=== PATIENT | female | born 1975 | race Caucasian/White ===

== ENCOUNTER → 2017-06-07 | Outpatient (REF) | payer BC | LOC: M SFHCWAGY 08:33 | PROVIDERS: ATTEND Nurse Practitioner Women's Health | DX: Z12.4 Encounter for screening for malignant neoplasm of cervix (principal) ==

== ENCOUNTER → 2018-06-08 | Outpatient (CLI) | payer BC | LOC: M WHC 08:09 | DX: Z12.31 Encounter for screening mammogram for malignant neoplasm of breast (principal) | CPT/HCPCS: 77067 ==

== ENCOUNTER → 2019-06-09 | Outpatient (CLI) | payer BC ==
--- NOTE | 2019-06-09 09:27 | REPMRS ---
Patient History The patient states she had a clinical breast exam in 05/2019. No known family history of cancer. Taking hormonal contraceptives for 24 years. Digital Woman Screen Mammo: June 09, 2019 - Exam #: [id number] Bilateral CC and MLO view(s) were taken. Technologist: Teresita Pérez, Technologist Prior study comparison: June 08, 2018, bilateral digital woman screen mammo performed at [facility]. 2015, bilateral digital mammo screening bilat, performed at [facility]. June 14, 2015, bilateral digital woman screen mammo, performed at [facility]. FINDINGS: There are scattered fibroglandular densities. There is a stable nodular opacity inferomedially in the right breast unchanged. There has been no change in the appearance of the mammogram from the prior studies. There is a mild amount of scattered fibroglandular density which is fairly symmetric. There is no interval development of dominant mass, architectural distortion, or grouped microcalcification suggestive of malignancy. 3-D tomosynthesis shows no additional findings. Assessment: BI-RADS/ACR category 2 mammogram. Benign Findings. Recommendation Routine screening mammogram of both breasts in 1 year (for women over age 40). This patient's Lifetime Breast Cancer Risk is estimated at 8.9 %. This mammogram was interpreted with the aid of an FDA-approved computer-aided dectection system. Electronically Signed By: Joseph Catalan MD 06/09/19 0985
== END ==
LOC: M WHC 08:14
PROVIDERS: ATTEND Nurse Practitioner Women's Health
DX: Z12.31 Encounter for screening mammogram for malignant neoplasm of breast (principal); Z79.3 Long term (current) use of hormonal contraceptives

== ENCOUNTER → 2019-06-26 | Outpatient (CLI) | payer BC ==
[2019-06-26 10:22] LABS: BASO # 0.1 10^3/uL (0.0-0.2); BASO % 0.5 % (0.0-1.0); EOS # 0.1 10^3/uL (0.0-0.50); EOS % 1.3 % (0.0-3.0); HEMATOCRIT 43.3 % (36.0-47.0); HEMOGLOBIN 13.9 g/dl (12.0-15.5); LYMPH # 4.2 10^3/uL (1.5-4.5); LYMPH % 44.4 % (24.0-44.0); MEAN CORPUSCULAR HEMOGLOBIN 29.1 pg (27.0-33.0); MEAN CORPUSCULAR HGB CONC 32.1 g/dl (32.0-36.5); MEAN CORPUSCULAR VOLUME 90.6 fl (80.0-96.0); MONO # 0.7 10^3/uL (0.0-0.8); MONO % 7.5 % (0.0-5.0); NEUTROPHILS # 4.4 10^3/uL (1.8-7.7); NEUTROPHILS % 46.1 % (36.0-66.0); PLATELET COUNT, AUTOMATED 335 10^3/uL (150-450); RED BLOOD COUNT 4.78 10^6/uL (4.00-5.40); WHITE BLOOD COUNT 9.5 10^3/uL (4.0-10.0)
[2019-06-26 10:36] LABS: HEMOGLOBIN A1c 5.9 %
[2019-06-26 10:43] LABS: ALBUMIN 3.3 GM/DL (3.2-5.2); ALT/SGPT 20 U/L (12-78); BILIRUBIN,TOTAL 0.2 MG/DL (0.2-1.0); BLOOD UREA NITROGEN 11 MG/DL (7-18); CALCIUM LEVEL 8.8 MG/DL (8.5-10.1); CARBON DIOXIDE LEVEL 28 MEQ/L (21-32); CHLORIDE LEVEL 106 MEQ/L (98-107); CHOLESTEROL LEVEL 171 MG/DL (<200); CHOLESTEROL RISK RATIO 3.109 (<5); CREATININE FOR GFR 0.67 MG/DL (0.55-1.30); GLOMERULAR FILTRATION RATE > 60.0 (>58); GLUCOSE, FASTING 93 MG/DL (70-100); HDL CHOLESTEROL 55 MG/DL (>40); LDL CHOLESTEROL 75 MG/DL (<100); NON-HDL-C 116 MG/DL; POTASSIUM SERUM 4.4 MEQ/L (3.5-5.1); SODIUM LEVEL 140 MEQ/L (136-145); TOTAL PROTEIN 6.8 GM/DL (6.4-8.2); TRIGLYCERIDES LEVEL 203 MG/DL (<150)
[2019-06-26 11:30] LABS: TOTAL 25(OH) VITAMIN D 24.9 NG/ML (30.0-100.0)
== END ==
LOC: M SMT 08:04
PROVIDERS: ATTEND Internal Medicine
DX: G43.009 Migraine without aura, not intractable, without status migrainosus (principal); E66.9 Obesity, unspecified

== ENCOUNTER → 2020-05-31 | Outpatient (REF) | payer BC ==
[2020-05-31 12:56] LABS: ALBUMIN 3.4 GM/DL (3.2-5.2); ALT/SGPT 32 U/L (12-78); BILIRUBIN,TOTAL 0.4 MG/DL (0.2-1.0); BLOOD UREA NITROGEN 12 MG/DL (7-18); CALCIUM LEVEL 8.7 MG/DL (8.5-10.1); CARBON DIOXIDE LEVEL 28 MEQ/L (21-32); CHLORIDE LEVEL 106 MEQ/L (98-107); CHOLESTEROL LEVEL 205 MG/DL (<200); CHOLESTEROL RISK RATIO 3.306 (<5); CREATININE FOR GFR 0.71 MG/DL (0.55-1.30); FOLATE > 24.0 NG/ML; GLOMERULAR FILTRATION RATE > 60.0 (>58); GLUCOSE, FASTING 89 MG/DL (70-100); HDL CHOLESTEROL 62 MG/DL (>40); LDL CHOLESTEROL 108 MG/DL (<100); NON-HDL-C 143 MG/DL; POTASSIUM SERUM 4.5 MEQ/L (3.5-5.1); SODIUM LEVEL 138 MEQ/L (136-145); TOTAL 25(OH) VITAMIN D 34.5 NG/ML (30.0-100.0); TOTAL PROTEIN 7.3 GM/DL (6.4-8.2); TRIGLYCERIDES LEVEL 175 MG/DL (<150); VITAMIN B12 LEVEL 1574 PG/ML
[2020-05-31 13:10] LABS: HEMOGLOBIN A1c 5.9 %
[2020-05-31 13:19] LABS: MALB URINE SIEMENS 10.2 MG/L; MAU/CREAT RATIO 5.7 MCG/MG (0.0-30.0)
== END ==
LOC: M PLALAB 08:01
PROVIDERS: ATTEND Nurse Practitioner Family
DX: G43.109 Migraine with aura, not intractable, without status migrainosus (principal); R73.03 Prediabetes; E66.01 Morbid (severe) obesity due to excess calories; E55.9 Vitamin D deficiency, unspecified; E53.8 Deficiency of other specified B group vitamins

== ENCOUNTER → 2021-06-17 | Outpatient (CLI) | payer BC ==
--- NOTE | 2021-06-17 11:46 | REP ---
INDICATION: ILEANA SCR MAMMO. COMPARISON: Multiple TECHNIQUE: Digital screening mammography was carried out bilaterally in the CC and MLO projections using both 2D and 3D modalities and compared to the prior exams. By history, the patient has no complaints of a palpable breast abnormality or other significant breast complaints. FINDINGS: The breasts are unchanged in size and shape. Once again, dense heterogenous somewhat nodular fibroglandular elements are seen bilaterally. In the right breast upper outer quadrant there is a potential tiny monica density. No other suspicious features are seen in either breast. The Volpara volumetric breast density pattern is b. IMPRESSION: BIRADS/ACR category 0 mammogram. Potential monica density right breast upper outer quadrant for which diagnostic digital magnified spot compression views recommended in the CC and MLO projections along with diagnostic ultrasonography if necessary. This patient's Tyrer-Cuzick lifetime breast cancer risk assessment score is 8.7%. This mammogram was interpreted with the aid of an FDA-approved computer-aided detection system. The patient states she had a clinical breast exam in May 2021. The patient letter being requested is M0. RECOMMENDATION: As above <Electronically signed by Spencer Infante > 06/17/21 1148
== END ==
LOC: M WHC 09:52
PROVIDERS: ATTEND Nurse Practitioner Women's Health
DX: Z12.31 Encounter for screening mammogram for malignant neoplasm of breast (principal)

== ENCOUNTER → 2021-07-03 | Outpatient (CLI) | payer BC ==
[2021-07-03 12:03] LABS: BLOOD UREA NITROGEN 14 MG/DL (7-18); CARBON DIOXIDE LEVEL 28 MEQ/L (21-32); CHLORIDE LEVEL 106 MEQ/L (98-107); CREATININE FOR GFR 0.63 MG/DL (0.55-1.30); GLOMERULAR FILTRATION RATE > 60.0 (>58); GLUCOSE, FASTING 90 MG/DL (70-100); POTASSIUM SERUM 4.4 MEQ/L (3.5-5.1); SODIUM LEVEL 139 MEQ/L (136-145)
[2021-07-03 12:04] LABS: ALBUMIN 3.3 GM/DL (3.2-5.2); ALT/SGPT 29 U/L (12-78); BILIRUBIN,TOTAL 0.3 MG/DL (0.2-1.0); CALCIUM LEVEL 8.6 MG/DL (8.5-10.1); FREE T4 0.93 NG/DL (0.76-1.46); TOTAL PROTEIN 7.1 GM/DL (6.4-8.2)
[2021-07-03 12:10] LABS: TOTAL 25(OH) VITAMIN D 46.8 NG/ML (30.0-100.0)
[2021-07-03 12:20] LABS: VITAMIN B12 LEVEL 1463 PG/ML
[2021-07-03 12:59] LABS: HEMOGLOBIN A1c 5.6 %
[2021-07-03 14:16] LABS: FOLATE > 24.0 NG/ML
== END ==
LOC: M PLALAB 08:53
PROVIDERS: ATTEND Nurse Practitioner Family
DX: E55.9 Vitamin D deficiency, unspecified (principal); R73.03 Prediabetes; E66.01 Morbid (severe) obesity due to excess calories; E53.8 Deficiency of other specified B group vitamins

== ENCOUNTER → 2021-07-10 | Outpatient (CLI) | payer BC ==
--- NOTE | 2021-07-10 09:02 | REP ---
INDICATION: ADDITIONAL VIEWS RT BREAST. COMPARISON: Multiple the latest prior screening examination 06/17/2021 showed a potential monica density in the upper outer quadrant of the right breast for which diagnostic digital magnified spot compression views were obtained in the CC and MLO projections. TECHNIQUE: Diagnostic digital magnified spot-compression views right breast upper outer quadrant FINDINGS: The area seen on the prior screening examination in the upper outer quadrant of the right breast has compressed out to normal breast parenchyma. No abnormalities are noted. IMPRESSION: BIRADS/ACR category 2 benign findings. There is no evidence of malignant alteration. This mammogram was interpreted with the aid of an FDA-approved computer-aided detection system. The patient letter being requested is M1. RECOMMENDATION: Repeat screening mammography recommended 1 year (for women over 40). <Electronically signed by Spencer Infante > 07/10/21 0852
== END ==
LOC: M WHC 08:00
PROVIDERS: ATTEND Nurse Practitioner Women's Health
DX: R92.2 Inconclusive mammogram (principal)

== ENCOUNTER → 2021-08-27 | Outpatient (CLI) | payer BC ==
--- NOTE | 2021-08-27 09:49 | REP ---
INDICATION: RT KNEE PAIN. COMPARISON: None. TECHNIQUE: [place] and weight-bearing AP and lateral views of the right knee. FINDINGS: AP view demonstrates mild cortical irregularity to the femoral condyles. The tibiofemoral joint space appears relatively normal. [place] view demonstrates increased sclerosis along the posterior patellar margin with minimal lateral patellofemoral joint space narrowing suggested. Correlation is recommended. No evidence for acute or healed injury. No effusion. IMPRESSION: Questionable mild degenerative changes primarily involving the patellofemoral joint space. <Electronically signed by Adam Hansen > 08/27/21 0961
== END ==
LOC: M SOG 08:56
PROVIDERS: ATTEND Orthopaedic Surgery Adult Reconstructive Orthopaedic Surgery
DX: M25.561 Pain in right knee (principal)

== ENCOUNTER → 2021-12-09 | Outpatient (CLI) | payer BC ==
[2021-12-09 15:59] LABS: ALBUMIN 3.6 GM/DL (3.2-5.2); ALT/SGPT 39 U/L (12-78); BILIRUBIN,TOTAL 0.3 MG/DL (0.2-1.0); BLOOD UREA NITROGEN 17 MG/DL (7-18); CALCIUM LEVEL 9.1 MG/DL (8.5-10.1); CARBON DIOXIDE LEVEL 27 MEQ/L (21-32); CHLORIDE LEVEL 105 MEQ/L (98-107); CHOLESTEROL LEVEL 210 MG/DL (<200); CHOLESTEROL RISK RATIO 3.559 (<5); CREATININE FOR GFR 0.75 MG/DL (0.55-1.30); GLOMERULAR FILTRATION RATE > 60.0 (>58); GLUCOSE, FASTING 88 MG/DL (70-100); HDL CHOLESTEROL 59 MG/DL (>40); LDL CHOLESTEROL 103 MG/DL (<100); NON-HDL-C 151 MG/DL; POTASSIUM SERUM 4.6 MEQ/L (3.5-5.1); SODIUM LEVEL 137 MEQ/L (136-145); TOTAL 25(OH) VITAMIN D 51.7 NG/ML (30.0-100.0); TOTAL PROTEIN 7.4 GM/DL (6.4-8.2); TRIGLYCERIDES LEVEL 242 MG/DL (<150); VITAMIN B12 LEVEL > 2000 PG/ML
== END ==
LOC: M PLALAB 10:17
PROVIDERS: ATTEND Nurse Practitioner Adult Health
DX: E55.9 Vitamin D deficiency, unspecified (principal); E53.8 Deficiency of other specified B group vitamins; E66.01 Morbid (severe) obesity due to excess calories; Z83.49 Family history of other endocrine, nutritional and metabolic diseases; Z83.3 Family history of diabetes mellitus

== ENCOUNTER → 2022-01-01 | Outpatient (CLI) | payer BC | LOC: M RAD 14:47 | PROVIDERS: ATTEND Nurse Practitioner Adult Health | DX: R91.1 Solitary pulmonary nodule (principal) ==

== ENCOUNTER → 2022-05-03 | Outpatient (CLI) | payer BC ==
[~2022-05-03] MED LIST: AMIT10TA7 PO; BUPR300T92 PO; ENSK1TAB3 PO; PROP60TA18 PO; SUMA100T2 PO
== END ==
LOC: M LABSMTC 09:36
PROVIDERS: ATTEND Anesthesiology
DX: Z01.812 Encounter for preprocedural laboratory examination (principal)

== ENCOUNTER 2022-05-06 10:57 | Day surgery (SDC) | payer BC ==
[~2022-05-06] VITALS: Ht 172.7 cm; Wt 128.8 kg
[~2022-05-06 10:57] MED LIST changes: +LIDOCAINE 2% 100MG/5ML SDV (FOR ANES.) As Ordered ONE; +NS 1,000 ML IV ONE; +propofoL 200 MG/20 ML VIAL As Ordered ONE
[2022-05-06 12:50] VITALS: BP 139/93
== END 2022-05-06 13:05 | disposition home or self-care (01) ==
LOC: M OPP 10:57
PROVIDERS: ATTEND Internal Medicine Gastroenterology
DX: Z12.11 Encounter for screening for malignant neoplasm of colon (principal); Z80.0 Family history of malignant neoplasm of digestive organs; K64.0 First degree hemorrhoids; F41.9 Anxiety disorder, unspecified; F32.A Depression, unspecified; G43.909 Migraine, unspecified, not intractable, without status migrainosus; G47.30 Sleep apnea, unspecified; Z79.899 Other long term (current) drug therapy; Z96.652 Presence of left artificial knee joint

== ENCOUNTER → 2022-06-24 | Outpatient (CLI) | payer BC ==
[~2022-06-24] MED LIST changes: -LIDOCAINE 2% 100MG/5ML SDV (FOR ANES.) As Ordered ONE; -NS 1,000 ML IV ONE; -propofoL 200 MG/20 ML VIAL As Ordered ONE
== END ==
LOC: M PLALAB 14:53
PROVIDERS: ATTEND Advanced Practice Midwife
DX: Z53.9 Procedure and treatment not carried out, unspecified reason (principal)

== ENCOUNTER → 2022-06-24 | Outpatient (CLI) | payer BC | LOC: M WHC 13:17 | PROVIDERS: ATTEND Advanced Practice Midwife | DX: Z12.31 Encounter for screening mammogram for malignant neoplasm of breast (principal) ==

== ENCOUNTER → 2022-12-16 | Outpatient (CLI) | payer BC ==
[2022-12-16 14:25] LABS: HEMOGLOBIN A1c 5.2 % (4.0-6.0)
[2022-12-16 14:47] LABS: ALBUMIN 3.4 G/DL (3.2-5.2); ALKALINE PHOSPHATASE 110 U/L (46-116); ALT/SGPT 22 U/L (7.0-40); AST/SGOT 19 U/L (<34); BILIRUBIN,TOTAL 0.4 MG/DL (0.3-1.2); BLOOD UREA NITROGEN 13 MG/DL (9-23); CALCIUM LEVEL 8.8 MG/DL (8.5-10.1); CARBON DIOXIDE LEVEL 28 MMOL/L (20-31); CHLORIDE LEVEL 107 MMOL/L (98-107); CHOLESTEROL LEVEL 201 MG/DL (<200); CHOLESTEROL RISK RATIO 2.92 (<5); CREATININE FOR GFR 0.72 MG/DL (0.55-1.30); GLOMERULAR FILTRATION RATE > 60.0 (>58); GLUCOSE, FASTING 76 MG/DL (60-100); HDL CHOLESTEROL 68.7 MG/DL (>40); LDL CHOLESTEROL 100.9 MG/DL (<100); NON-HDL-C 132 MG/DL; POTASSIUM SERUM 4.6 MMOL/L (3.5-5.1); SODIUM LEVEL 139 MMOL/L (136-145); TOTAL PROTEIN 6.7 G/DL (5.7-8.2); TRIGLYCERIDES LEVEL 157 MG/DL (<150)
[2022-12-16 14:48] LABS: THYROID STIMULATING HORMONE 2.458 uIU/ML (0.55-4.78); TOTAL 25(OH) VITAMIN D 56.8 NG/ML (20.0-100.0)
== END ==
LOC: M PLALAB 09:25
PROVIDERS: ATTEND Nurse Practitioner Adult Health
DX: R73.03 Prediabetes (principal); E55.9 Vitamin D deficiency, unspecified; Z83.49 Family history of other endocrine, nutritional and metabolic diseases

== ENCOUNTER → 2023-11-10 | Outpatient (CLI) | payer BC | LOC: M WHC 10:25 | PROVIDERS: ATTEND Advanced Practice Midwife | DX: Z12.31 Encounter for screening mammogram for malignant neoplasm of breast (principal) ==

== ENCOUNTER → 2023-11-10 | Outpatient (REF) | payer BC | LOC: M SFHCWAGY 17:27 | PROVIDERS: ATTEND Nurse Practitioner Family | DX: Z12.4 Encounter for screening for malignant neoplasm of cervix (principal) ==

== ENCOUNTER → 2023-12-22 | Outpatient (CLI) | payer BC ==
[2023-12-22 11:58] LABS: HEMOGLOBIN A1c 5.4 % (4.0-6.0)
[2023-12-22 12:01] LABS: ALBUMIN 3.3 G/DL (3.2-5.2); ALKALINE PHOSPHATASE 114 U/L (46-116); ALT/SGPT 27 U/L (7.0-40); AST/SGOT 20 U/L (<34); BILIRUBIN,TOTAL 0.3 MG/DL (0.3-1.2); BLOOD UREA NITROGEN 13 MG/DL (9-23); CALCIUM LEVEL 9.1 MG/DL (8.5-10.1); CARBON DIOXIDE LEVEL 29 MMOL/L (20-31); CHLORIDE LEVEL 107 MMOL/L (98-107); CHOLESTEROL LEVEL 188 MG/DL (<200); CHOLESTEROL RISK RATIO 2.87 (<5); CREATININE FOR GFR 0.68 MG/DL (0.55-1.30); GLOMERULAR FILTRATION RATE > 60.0 (>58); GLUCOSE, FASTING 86 MG/DL (60-100); HDL CHOLESTEROL 65.3 MG/DL (>40); LDL CHOLESTEROL 88.9 MG/DL (<100); NON-HDL-C 122.7 MG/DL; POTASSIUM SERUM 4.7 MMOL/L (3.5-5.1); SODIUM LEVEL 139 MMOL/L (136-145); TOTAL PROTEIN 6.7 G/DL (5.7-8.2); TRIGLYCERIDES LEVEL 169 MG/DL (<150)
[2023-12-22 12:02] LABS: THYROID STIMULATING HORMONE 3.393 uIU/ML (0.55-4.78); TOTAL 25(OH) VITAMIN D 63.5 NG/ML (20.0-100.0)
== END ==
LOC: M PLALAB 09:14
PROVIDERS: ATTEND Nurse Practitioner Adult Health
DX: Z00.00 Encounter for general adult medical examination without abnormal findings (principal)

== ENCOUNTER → 2024-11-07 | Outpatient (CLI) | payer BC ==
[~2024-11-07] MED LIST changes: +BUPR-597 PO; -BUPR300T92 PO
== END ==
LOC: M WHC 15:28
PROVIDERS: ATTEND Nurse Practitioner Adult Health
DX: R92.322 Mammographic fibroglandular density, left breast (principal)

== ENCOUNTER → 2024-11-29 | Outpatient (CLI) | payer BC | LOC: M WHC 08:37 | PROVIDERS: ATTEND Nurse Practitioner Family | DX: Z12.31 Encounter for screening mammogram for malignant neoplasm of breast (principal); Z53.9 Procedure and treatment not carried out, unspecified reason ==

== ENCOUNTER → 2024-12-19 | Outpatient (CLI) | payer BC ==
[2024-12-19 10:20] LABS: THYROID STIMULATING HORMONE 4.047 uIU/ML (0.55-4.78); TOTAL 25(OH) VITAMIN D 64.1 NG/ML (20.0-100.0)
[2024-12-19 10:21] LABS: FREE T4 1.15 NG/DL (0.89-1.76)
[2024-12-19 10:22] LABS: ALBUMIN 3.2 G/DL (3.2-5.2); ALKALINE PHOSPHATASE 101 U/L (35-104); ALT/SGPT 23 U/L (7.0-40); AST/SGOT 14 U/L (<34); BILIRUBIN,TOTAL 0.4 MG/DL (0.3-1.2); BLOOD UREA NITROGEN 17 MG/DL (9-23); CARBON DIOXIDE LEVEL 28 MMOL/L (20-31); CHLORIDE LEVEL 105 MMOL/L (98-107); CHOLESTEROL LEVEL 199 MG/DL (<200); CHOLESTEROL RISK RATIO 3.13 (<5); GLOMERULAR FILTRATION RATE > 60.0 (>58); GLUCOSE, FASTING 90 MG/DL (60-100); HDL CHOLESTEROL 63.4 MG/DL (>40); LDL CHOLESTEROL 88.2 MG/DL (<100); NON-HDL-C 135.6 MG/DL; POTASSIUM SERUM 4.8 MMOL/L (3.5-5.1); SODIUM LEVEL 141 MMOL/L (136-145); TOTAL PROTEIN 6.8 G/DL (5.7-8.2); TRIGLYCERIDES LEVEL 237 MG/DL (<150)
[2024-12-19 10:35] LABS: HEMOGLOBIN A1c 5.3 % (4.0-6.0)
== END ==
LOC: M PLALAB 08:06
PROVIDERS: ATTEND Nurse Practitioner Adult Health
DX: Z00.00 Encounter for general adult medical examination without abnormal findings (principal); R73.03 Prediabetes; E55.9 Vitamin D deficiency, unspecified; Z83.49 Family history of other endocrine, nutritional and metabolic diseases